=== PATIENT | female | born 1935 | race Caucasian/White ===

== ENCOUNTER 2023-08-08 10:46 | Outpatient (REF) | payer SELFPAY ==
[2023-08-08 22:58] LABS: ALT 26 U/L (14-59); AST 18 U/L (15-37); Albumin 2.5 g/dL (3.4-5.0); Alkaline Phosphatase 62 U/L (46-116); Anion Gap 7.6 mmol/L (3-11); BUN 10 mg/dL (7-18); Bilirubin, Total 0.4 mg/dL (0.2-1.0); CO2 30.4 mmol/L (21.0-32.0); Calcium 8.8 mg/dL (8.5-10.1); Chloride 102 mmol/L (98-107); Estimated GFR 54.87 (mL/min/1.73m2); Glucose 95 mg/dL (74-106); Potassium 4.2 mmol/L (3.5-5.1); Sodium 140 mmol/L (136-145); TSH 3.16 uIU/mL (0.36-3.74); Total Protein 5.5 g/dL (6.4-8.2)
[2023-08-08 22:59] LABS: Abs Immature Grans 0.14 10^3/uL (0.0-0.06); Absolute Basophil Count 0.06 10^3/uL (0.0-0.2); Absolute Eosinophil Count 0.34 10^3/uL (0.0-0.7); Absolute Lymphocyte Count 1.88 10^3/uL (1.2-3.4); Absolute Monocyte Count 0.59 10^3/uL (0.1-0.8); Absolute Neutrophil Count 7.59 10^3/uL (1.2-6.7); Basophils % 0.6; Eosinophils % 3.2; HCT 37.9 % (36.0-46.0); HGB 12.2 g/dL (11.2-15.7); Immature Grans % 1.3; Lymphocytes % 17.7; MCH 31.1 pg (27.0-33.0); MCHC 32.2 % (32.0-36.0); MCV 97 fL (80-95); MPV 11.4 fL (8.0-11.0); Monocytes % 5.6; Neutrophils % 71.6; Platelet Count 199 10^3/uL (130-400); RBC 3.92 10^6/uL (3.93-5.22); RDW 14.9 % (11.7-14.6); RDW-SD 52.2 fL
[2023-08-08 23:16] LABS: Hemoglobin A1C 6.3 % (<5.7)
== END 2023-08-08 10:47 | disposition home or self-care (01) ==
LOC: NCHCN 10:46
PROVIDERS: PCP Family Medicine; Visit Provider Family Medicine
DX: E05.90 Thyrotoxicosis, unspecified without thyrotoxic crisis or storm (principal); E11.9 Type 2 diabetes mellitus without complications; I10 Essential (primary) hypertension
CPT/HCPCS: 80053; 83036; 84443; 85025

== ENCOUNTER 2023-10-25 09:23 | Outpatient (REF) | payer MEDICARE, MEDICAID, SELFPAY ==
[2023-10-25 17:03] LABS: Hemoglobin A1C 5.8 % (<5.7)
== END 2023-10-25 09:24 | disposition home or self-care (01) ==
LOC: NCHCN 09:23
PROVIDERS: PCP Family Medicine; Visit Provider Family Medicine
DX: E11.9 Type 2 diabetes mellitus without complications (principal)
CPT/HCPCS: 83036

== ENCOUNTER 2023-11-25 18:13 | Outpatient (REF) | payer MEDICARE, MEDICAID, SELFPAY ==
[2023-11-25 17:40] LABS: Anion Gap 7.4 mmol/L (3-11); BUN 18 mg/dL (7-18); CO2 28.6 mmol/L (21.0-32.0); Calcium 8.5 mg/dL (8.5-10.1); Chloride 104 mmol/L (98-107); Estimated GFR 54.87 (mL/min/1.73m2); Glucose 107 mg/dL (74-106); Potassium 4.3 mmol/L (3.5-5.1); Sodium 140 mmol/L (136-145)
== END 2023-11-25 18:14 | disposition home or self-care (01) ==
LOC: LBN 18:13
PROVIDERS: PCP Family Medicine; Visit Provider Family Medicine
DX: E11.9 Type 2 diabetes mellitus without complications (principal)
CPT/HCPCS: 80048

== ENCOUNTER 2023-12-21 14:43 | Outpatient (REF) | payer MEDICARE, MEDICAID, SELFPAY ==
--- OUTSIDE RECORDS SUMMARY | 2023-12-21 14:45 | XMS_ITS | CCD ---
Author Name Unknown Address [address] [place] [address] [phone] Organization Unknown Address [address] [place] [address] [phone] Care Team Providers Care Hide Or Skin Buffer Name Role Phone ALLISON MCDONNELL Attending Physician [phone] TIFFANIE WALDROP Er Physician 2 [phone] GREGOIRO Valle Registered Nurse [phone] Vital Signs Vital Sign Value Unit Date/Time Recent/Initial ? BMI (Body Mass Index) 50.26 kg/m^2 12/03/2023 14: 18 Initial VS Weight Measured 266 lbs 12/03/2023 14:18 Ini tial VS Height 61 in 12/03/2023 14:18 Initial VS BSA (Body Surface Area) 2.28 m^2 12/03/2023 1 4:18 Initial VS BP Systolic 139 mmHg 12/03/2023 14:18 Initial VS BP Diastolic 62 mmHg 12/03/2023 14:18 Initia l VS Respiratory Rate 16 bpm 12/03/2023 14:18 In itial VS Heart Rate 77 bpm 12/03/2023 14:18 Initial VS O2 % BldC Oximetry 94 % 12/03/2023 14:18 Initial VS Body Temperature 36.6 degrees 12/03/2023 14:18 In itial VS BP Systolic 123 mmHg 12/03/2023 18:37 Most Re cent VS BP Diastolic 54 mmHg 12/03/2023 18:37 Most R ecent VS Respiratory Rate 18 bpm 12/03/2023 18:[address] Recent VS Heart Rate 97 bpm 12/03/2023 18:37 Most Rec ent VS O2 % BldC Oximetry 93 % 12/03/2023 18:37 Most Recent VS Allergies Allergy Code Allergy Type Reaction Status PENICILLINS (CLASS) 98638 Drug allergy Act isis SULFA (sulfonamide) 0 Drug allergy Act isis pork {Clinical monitoring unavailable} 0 Drug all ergy Active HYDROCODONE 5489 Drug allergy Active pork {Clinical monitoring unavailable} 0 Food all ergy Active PROCHLORPERAZINE 8704 Drug allergy Active NSAID 0 Drug allergy Active LATEX 0 Allergy to substance RASH Acti ve Procedures Unknown or Not Available. History of Immunizations Unknown or Not Available. 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 2 BILIRUBIN TOTAL 1975-2 0.4 mg/dL L=0.0 H=1 .3 ALK. PHOS. 6768-6 66 U/L L=46 H=116 SGOT (AST) 1920-8 22 U/L L=15 H=37 SGPT (ALT) 1742-6 14 U/L L=12 H=78 TOTAL PROTEIN 2885-2 6.9 gm/dL L=6.0 H=8.0 ALBUMIN 1751-7 2.9 gm/dL L=3.4 H=5.0 AGE 88 years eGFR (non-Afr.Amer.) 14951-1 53 mL/min eGFR (Afr-Norwegian) 61814-6 64 mL/min MAGNESIUM SERUM* - Collect D ate/Time: 12/03/2023 14:14 Test Name Code Test Result Test Units Test Ref Rang e MAGNESIUM 37589-6 2.3 mg/dL L=1.8 H=2.4 TROPONIN HIGH SENSITIVITY* - Collect Date/Time: 12/03/2023 14:14 Test Name Code Test Result Test Units Test Ref Rang e TROPONIN HS 7.6 pg/mL L=0.0 H=60.4 Specimen seq. RANDOM N/A CBC W/ DIFFERENTIAL* - Colle ct Date/Time: 12/03/2023 14:14 Test Name Code Test Result Test Units Test Ref Rang e WBC 6690-2 10.14 th/cmm L=5.00 H=10.00 NEUT % 80.9 % L=40.0 H=80.0 LYMPH % 12.1 % L=10.0 H=50.0 MONO % 37135-2 4.2 % L=2.0 H=12.0 EOS % 1.0 % L=0.0 H=8.0 BASO % 0.5 % L=0.0 H=3.0 IG % 2514-8 1.3 % L=0.0 H=1.1 NRBC % 91271-0 0.0 % L=0.0 H=0.0 NEUT abs count 751-8 8.2 th/cmm L=1.6 H=8. 4 LYMPH abs count 731-0 1.2 th/cmm L=1.5 H=4 .0 MONO abs count 742-7 0.4 th/cmm L=0.2 H=1. 0 EOS abs count 711-2 0.1 th/cmm L=0.0 H=0.5 BASO abs count 704-7 0.1 th/cmm L=0.0 H=0. 2 IG abs count 78863-6 0.1 th/cmm L=0.0 H=0.1 NRBC abs count 22526-3 0.0 mil/cmm L=0.0 H=0. 0 RBC 789-8 4.48 mil/cmm L=3.90 H=5.40 HEMOGLOBIN 718-7 13.7 gm/dL L=12.0 H=16.0 HEMATOCRIT 4544-3 43 % L=37 H=47 MCV 787-2 96 fL L=82 H=92 MCH 785-6 30.6 pg L=27.0 H=31.0 MCHC 786-4 31.7 % L=32.0 H=36.0 RDW-SD 788-0 51.8 fL L=39.0 H=49.0 PLATELET COUNT 777-3 217 th/cmm L=150 H=45 0 CULT URINE CULTURE* - Colle t Date/Time: 12/03/2023 16:16 Test Name Code Test Result Test Units Test Ref Rang e COLLECTION MODE: 45826-3 CATH N/A URINALYSIS WITH REFLEX CULT IF POSITIVE* - Collect Date/Time: 12/03/2023 16:16 Test Name Code Test Result Test Units Test Ref Rang e COLLECTION MODE: 87806-5 CLEAN CATCH N/A Color 5778-6 YELLOW N/A yellow Appearance 5767-9 HAZY N/A clear Glucose urine 47115-5 >=1000 N/A negative mg /dl Bilirubin 5770-3 NEGATIVE N/A negative Ketones 2514-8 15 N/A negative mg/dl Spec gravity 5811-5 1.015 N/A 1.003 - 1.03 0 pH urine 2756-5 6.0 N/A 5.0 - 7.0 Protein 64536-0 NEGATIVE N/A negative mg/dl Urobilinogen 97099-2 0.2 N/A <or= 1 EU/dl Nitrite. 5802-4 POSITIVE N/A negative Blood 5794-3 NEGATIVE N/A negative Leukocytes. MODERATE N/A negative MICROSCOPIC INDICATED N/A WBCs. 54772-7 10-25 N/A 0-5 / hpf RBCs 14277-6 0-5 N/A 0-5 / hpf Epith cells 23956-8 0-5 N/A 0-5 / hpf Cell types squamous N/A Crystals none N/A none Bacteria moderate N/A none Mucus 8247-9 present N/A none Casts 01571-8 none N/A none /lpf Active Medications Unknown or Not Available. Medications Administered During Visit Unknown or Not Available. Encounters Encounter Diagnosis Diagnosis Code Start Date Contusion of scalp, initial encounter [id number] 12/03/2023 Social History Smoking Status Code Start Date End Date Never smoker [id number] Patient Decision Aids Unknown or Not Available. Discharge Instructions You were admitted to [facility] on 12/03/2023 13:09 with a principal diagnosis of Contusion of scalp, initial encounter You had the following tests done:CULT URINE CULTURE*URINALYSIS WITH REFLEX CULT IF POSITIVE*CBC W/ DIFFERENTIAL*COMPREHENSIVE METABOLIC PANEL (CMP)MAGNESIUM SERUM*TROPONIN HIGH SENSITIVITY* You were discharged from [facility] on 12/03/2023 19:24 Should you have any questions prior to discharge, please contact a member of your healthcare team. If you have left the hospital and have any questions, please contact your primary care physician. Chief Complaint and Reason For Visit Chief Complaint Date of Onset FELL BECAUSE OF DIZZINESS Function Status Unknown or Not Available. Plan of Care Unknown or Not Available. Referral/Transition of Care Unknown or Not Available.
[2023-12-21 15:07] LABS: HGB 11.6 g/dL (11.2-15.7); MCH 29.6 pg (27.0-33.0); MCHC 31.4 % (32.0-36.0); MCV 94 fL (80-95); MPV 10.5 fL (8.0-11.0); Platelet Count 235 10^3/uL (130-400); RBC 3.92 10^6/uL (3.93-5.22); RDW 15.2 % (11.7-14.6); RDW-SD 52.4 fL; WBC 7.85 10^3/uL (4.4-10.8)
[2023-12-21 15:57] LABS: BUN 18 mg/dL (7-18); CREATININE 0.9 mg/dL (0.55-1.02); Calcium 8.9 mg/dL (8.5-10.1); Chloride 102 mmol/L (98-107); Estimated GFR 62.26 (mL/min/1.73m2); Glucose 82 mg/dL (74-106); Potassium 4.3 mmol/L (3.5-5.1); Sodium 140 mmol/L (136-145)
== END 2023-12-21 14:44 | disposition home or self-care (01) ==
LOC: NCHCN 14:43
PROVIDERS: PCP Family Medicine; Visit Provider Family Medicine
DX: I10 Essential (primary) hypertension (principal)
CPT/HCPCS: 80048; 85027

== ENCOUNTER 2024-01-17 21:51 | Outpatient (REF) | payer MEDICARE, MEDICAID, SELFPAY ==
[2024-01-17 22:29] LABS: COVID-19 PCR Negative (Negative); Influenza A PCR Negative (Negative); Influenza B PCR Negative (Negative); RSV PCR Negative (Negative)
[2024-01-17 22:32] LABS: Source Nasopharynx
== END 2024-01-17 21:52 | disposition home or self-care (01) ==
LOC: NCHCN 21:51
PROVIDERS: PCP Family Medicine; Visit Provider Family Medicine
DX: R50.9 Fever, unspecified (principal); Z20.828 Contact with and (suspected) exposure to other viral communicable diseases
CPT/HCPCS: 87637

== ENCOUNTER 2024-04-25 14:29 | Outpatient (REF) | payer MEDICARE, MEDICAID, SELFPAY ==
[2024-04-25 16:48] LABS: Hemoglobin A1C 5.3 % (<5.7)
== END 2024-04-25 14:30 | disposition home or self-care (01) ==
LOC: LBN 14:29
PROVIDERS: PCP Family Medicine; Visit Provider Family Medicine
DX: E11.40 Type 2 diabetes mellitus with diabetic neuropathy, unspecified (principal)
CPT/HCPCS: 83036

== ENCOUNTER 2024-10-25 15:05 | Outpatient (REF) | payer MEDICARE, MEDICAID, SELFPAY ==
[2024-10-25 15:50] LABS: Hemoglobin A1C 5.1 % (<5.7)
== END 2024-10-25 15:06 | disposition home or self-care (01) ==
LOC: NCHCN 15:05
PROVIDERS: PCP Family Medicine; Visit Provider Family Medicine
DX: E11.9 Type 2 diabetes mellitus without complications (principal)
CPT/HCPCS: 83036

== ENCOUNTER 2024-12-17 15:47 | Outpatient (REF) | payer MEDICARE, MEDICAID, SELFPAY ==
[2024-12-17 16:29] LABS: Anion Gap 5.9 mmol/L (3-11); BUN 24 mg/dL (7-18); CO2 30.1 mmol/L (21.0-32.0); CREATININE 0.8 mg/dL (0.55-1.02); Calcium 8.8 mg/dL (8.5-10.1); Chloride 108 mmol/L (98-107); Estimated GFR 71.27 (mL/min/1.73m2); Glucose 90 mg/dL (74-106); Potassium 4.2 mmol/L (3.5-5.1); Sodium 144 mmol/L (136-145)
== END 2024-12-17 15:48 | disposition home or self-care (01) ==
LOC: NCHCN 15:47
PROVIDERS: PCP Family Medicine; Visit Provider Family Medicine
DX: E87.6 Hypokalemia (principal); E11.9 Type 2 diabetes mellitus without complications
CPT/HCPCS: 80048